=== PATIENT | female | born 1975 | race Two or more races ===

== ENCOUNTER 2017-06-28 06:46 | Inpatient (IN) | payer BC, OTHER ==
[~2017-06-28] VITALS: Ht 162.6 cm; Wt 90.0 kg
[2017-06-28] MEDS ORDERED: OXYTOCIN 30U/ 0.9% NaCL 500ML 500 ML IV PRN (06:49)
[2017-06-28] MEDS: D5%-LACTATED RINGERS 1,000 ML IV SCH ×2 (06:49→14:49)
[2017-06-28] MEDS ORDERED: OXYTOCIN 30U/ 0.9% NaCL 500ML 500 ML IV ONE (06:49)
[2017-06-28] MEDS ORDERED: OXYTOCIN 30U/ 0.9% NaCL 500ML 500 ML ONE (06:54)
[2017-06-28] MEDS ORDERED: NEWBORN KIT ONE (06:54)
[2017-06-28] MEDS ORDERED: MISOPROSTOL 200 MCG TABLET ONE (06:54)
[2017-06-28] MEDS ORDERED: LIDOCAINE 1%, 20ML ONE (06:54)
[2017-06-28] MEDS ORDERED: TERBUTALINE 1 MG/ML, 1ML IVPush PRN ×2 (07:00)
[2017-06-28] MEDS ORDERED: ONDANSETRON 2MG/ML, 2ML IVPush PRN (07:00)
[2017-06-28] MEDS ORDERED: FENTANYL PF 100 MCG/2ML IVPush PRN (07:00)
[2017-06-28] MEDS ORDERED: TERBUTALINE 1 MG/ML, 1ML SQ PRN (07:00)
[2017-06-28] MEDS ORDERED: FENTANYL PF 100 MCG/2ML IV PRN (07:00)
[2017-06-28] MEDS ORDERED: CALCIUM CARBONATE 500 MG TAB.CHEW PO PRN (07:00)
[2017-06-28 07:23] LABS: BASOPHILS # (AUTO) 0.04 x10^3/uL (0-0.1); BASOPHILS % (AUTO) 1 % (0-1); EOSINOPHILS # (AUTO) 0.04 x10^3/uL (0-0.4); EOSINOPHILS % (AUTO) 1 % (1-7); LYMPHOCYTES # (AUTO) 2.33 x10^3/uL (1-3.4); LYMPHOCYTES % (AUTO) 30 % (22-44); MD NO; MEAN CORPUSCULAR HEMOGLOBIN 27.9 pg (27.0-34.8); MEAN CORPUSCULAR HGB CONC 33.5 g/dL (32.4-35.8); MEAN CORPUSCULAR VOLUME 83.2 fL (80-100); MEAN PLATELET VOLUME 9.6 fL (7.4-10.4); MONOCYTES # (AUTO) 0.49 x10^3/uL (0.2-0.8); MONOCYTES % (AUTO) 7 % (2-9); NEUTROPHILS # (AUTO) 4.75 x10^3/uL (1.8-6.8); NEUTROPHILS % (AUTO) 62 % (42-75); PLATELET COUNT 206 x10^3/uL (130-400); RED CELL DISTRIBUTION WIDTH 14.4 % (9.6-15.2)
[2017-06-28] MEDS: LACTATED RINGERS 1,000 ML IV SCH ×2 (07:27→15:57)
[2017-06-28 07:58] LABS: ALANINE AMINOTRANSFERASE 18 U/L (12-78); ALBUMIN 2.7 g/dL (3.4-5.0); ANION GAP 11 mmol/L (5-15); BILIRUBIN, DIRECT 0.1 mg/dL (0.1-0.2); CALCIUM 8.3 mg/dL (8.5-10.1); CHLORIDE 109 mmol/L (98-107); CREATININE 0.61 mg/dL (0.55-1.02)
[2017-06-28 07:59] LABS: ALKALINE PHOSPHATASE 174 U/L (45-117); BILIRUBIN,TOTAL 0.8 mg/dL (0.2-1.0)
[2017-06-28 08:09] LABS: CREATININE,URINE RANDOM 96.7 mg/dL
[2017-06-28 08:56] LABS: MICROSCOPIC INDICATED
[2017-06-28] MEDS ORDERED: IBUPROFEN 600 MG TABLET ONE (15:54)
[2017-06-28] MEDS ORDERED: MISOPROSTOL 200 MCG TABLET PR ONE (16:30)
[2017-06-28] MEDS ORDERED: IBUPROFEN 200 MG TABLET PO PRN (16:30)
[2017-06-28] MEDS ORDERED: ACETAMINOPHEN 325 MG TABLET PO PRN (17:30)
[2017-06-28] MEDS ORDERED: METOCLOPRAMIDE 5 MG/ML, 2ML IV PRN (17:30)
[2017-06-28] MEDS ORDERED: IBUPROFEN 800 MG TABLET PO PRN (17:30)
[2017-06-28] MEDS ORDERED: CARBOPROST TROMETHAMINE 250 MCG/ML, 1ML IM PRN (17:30)
[2017-06-28] MEDS ORDERED: OXYcodone/APAP 5/325MG TABLET PO PRN ×2 (17:30)
[2017-06-28] MEDS ORDERED: ONDANSETRON 2MG/ML, 2ML IV PRN (17:30)
[2017-06-28] MEDS ORDERED: GLYCERIN ADULT SUPP PR PRN (17:30)
[2017-06-28] MEDS ORDERED: IBUPROFEN 600 MG TABLET PO PRN (17:30)
[2017-06-28] MEDS ORDERED: BISACODYL 10 MG SUPP PR PRN (17:30)
[2017-06-28 18:30] VITALS: BP 127/78
[2017-06-28] MEDS: OXYTOCIN 30U/ 0.9% NaCL 500ML 500 ML IV SCH (18:45)
[2017-06-28 19:35] VITALS: BP 131/77
[2017-06-29 00:24] VITALS: BP 123/77
[2017-06-29] MEDS: OXYTOCIN 30U/ 0.9% NaCL 500ML 500 ML IV SCH (03:27)
[2017-06-29 03:40] VITALS: BP 122/78
[2017-06-29] MEDS: D5%-LACTATED RINGERS 1,000 ML IV SCH (04:00)
[2017-06-29 05:23] LABS: BASOPHILS # (AUTO) 0.04 x10^3/uL (0-0.1); BASOPHILS % (AUTO) 0 % (0-1); EOSINOPHILS # (AUTO) 0.04 x10^3/uL (0-0.4); EOSINOPHILS % (AUTO) 0 % (1-7); LYMPHOCYTES # (AUTO) 2.24 x10^3/uL (1-3.4); LYMPHOCYTES % (AUTO) 21 % (22-44); MD NO; MEAN CORPUSCULAR HEMOGLOBIN 28.2 pg (27.0-34.8); MEAN CORPUSCULAR HGB CONC 33.4 g/dL (32.4-35.8); MEAN CORPUSCULAR VOLUME 84.3 fL (80-100); MEAN PLATELET VOLUME 9.7 fL (7.4-10.4); MONOCYTES # (AUTO) 0.64 x10^3/uL (0.2-0.8); MONOCYTES % (AUTO) 6 % (2-9); NEUTROPHILS # (AUTO) 7.74 x10^3/uL (1.8-6.8); NEUTROPHILS % (AUTO) 72 % (42-75); PLATELET COUNT 178 x10^3/uL (130-400); RED CELL DISTRIBUTION WIDTH 13.9 % (9.6-15.2)
[2017-06-29 07:20] VITALS: BP 119/78
[2017-06-29] MEDS: PRENATAL VIT/IRON/FA 1 EACH TABLET PO SCH (09:55)
[2017-06-29] MEDS: DOCUSATE 100 MG CAPSULE PO PRN (09:55)
[2017-06-29 13:15] VITALS: BP 139/94
[2017-06-29 19:35] VITALS: BP 133/83
[2017-06-30] MEDS: PRENATAL VIT/IRON/FA 1 EACH TABLET PO SCH (09:35)
[2017-06-30] MEDS: DOCUSATE 100 MG CAPSULE PO PRN (09:35)
[2017-06-30 09:45] VITALS: BP 138/87
== END 2017-06-30 13:55 | disposition home or self-care (01) | DRG 775 ==
LOC: LDIP 06:46 → 2NW 17:48
PROVIDERS: ADMIT Student in an Organized Health Care Education/Training Program; ATTEND Student in an Organized Health Care Education/Training Program
PROC: 10907ZC Drainage of Amniotic Fluid, Therapeutic from Products of Conception, Via Natural or Artificial Opening (ICD-10-PCS; principal; 2017-06-28)
PROC: 10E0XZZ Delivery of Products of Conception, External Approach (ICD-10-PCS; 2017-06-28)
DX: O24.429 Gestational diabetes mellitus in childbirth, unspecified control (principal); O09.523 Supervision of elderly multigravida, third trimester; O76 Abnormality in fetal heart rate and rhythm complicating labor and delivery; O14.94 Unspecified pre-eclampsia, complicating childbirth; O35.8XX0 Maternal care for other (suspected) fetal abnormality and damage, not applicable or unspecified; Z37.0 Single live birth; Z3A.38 38 weeks gestation of pregnancy; Z91.19 Patient's noncompliance with other medical treatment and regimen
CPT/HCPCS: 36415; 80053; 81001; 82248; 82570; 82803; 82962; 84156; 84550; 85025; 86850; 86900; J2590; J7120